=== PATIENT | male | born 1985 | race Caucasian/White ===

== ENCOUNTER 2024-04-27 16:52 | Inpatient (IN) | payer OTHER ==
[~2024-04-27] VITALS: Ht 185.4 cm; Wt 200.0 kg
[2024-04-27] MEDS: piperacillin/tazo 3.375gm/50ml 50 ML IV ONE (17:52)
[2024-04-27] MEDS ORDERED: magnesium sulf-water 4G/100mL 100 ML IV PRN (19:10)
[2024-04-27] MEDS ORDERED: morphine 2 MG/ML inj. syringe IV PRN ×2 (19:10)
[2024-04-27] MEDS ORDERED: mag hydrox/Alum hydrox/simeth 30ml oral suspension PO PRN (19:10)
[2024-04-27] MEDS ORDERED: magnesium hydroxide 30ml (MOM) UD suspension PO PRN (19:10)
[2024-04-27] MEDS ORDERED: potassium Cl 20 mEq SR tablet PO PRN ×2 (19:10)
[2024-04-27] MEDS ORDERED: acetaminophen 325mg tablet PO PRN (19:10)
[2024-04-27] MEDS ORDERED: magnesium Cl slow-release 64mg tablet PO PRN (19:10)
[2024-04-27] MEDS ORDERED: ondansetron/PF 4mg/2ml inj IV PRN (19:10)
[2024-04-27] MEDS ORDERED: potassium Cl 40MEQ/1/2NS 520ml 520 ML IV PRN (19:10)
[2024-04-27] MEDS: normal saline 1000ml 1,000 ML IV SCH (19:38)
[2024-04-27] MEDS: docusate sod 100mg capsule PO SCH (19:38)
[2024-04-27 20:13] LABS: APTT 26 SECONDS (22-32); PROTHROMBIN TIME 10.7 SECONDS (9.0-12.0)
[2024-04-27 20:19] LABS: BASOPHILS # (AUTO) 0.1 X10'3 (0-0.2); BASOPHILS % (AUTO) 0.7 % (0-1); EOSINOPHILS # (AUTO) 0.4 X10'3 (0-0.9); HEMATOCRIT 34.8 % (42.0-52.0); HEMOGLOBIN 11.1 g/dl (14.0-17.9); LYMPHOCYTES # (AUTO) 1.7 X10'3 (1.1-4.8); LYMPHOCYTES % (AUTO) 23.1 % (21-51); MEAN CORPUSCULAR HEMOGLOBIN 27.9 PG (27.0-31.0); MEAN CORPUSCULAR VOLUME 87.1 FL (78-98); MEAN PLATELET VOLUME 7.5 FL (7.4-10.4); MONOCYTES # (AUTO) 0.6 X10'3 (0-0.9); MONOCYTES % (AUTO) 8.8 % (2-12); NEUTROPHILS # (AUTO) 4.4 X10'3 (1.8-7.7); NEUTROPHILS % (AUTO) 61.4 % (42-75); PLATELET COUNT 311 X10'3 (140-440); RED CELL DISTRIBUTION WIDTH 16.3 % (11.5-14.5); WHITE BLOOD COUNT 7.2 X10'3 (4.5-11.0)
[2024-04-27 20:33] LABS: ALANINE AMINOTRANSFERASE 27 U/L (12-78); ALBUMIN/GLOBULIN RATIO 0.6 (1.1-1.5); ALKALINE PHOSPHATASE 85 IU/L (46-116); ANION GAP 7 (8-16); ASPARTATE AMINO TRANSFERASE 17 U/L (10-37); BILIRUBIN,TOTAL 0.3 MG/DL (0.1-1.0); BLOOD UREA NITROGEN 9 MG/DL (7-18); BUN/CREATININE RATIO 10.8 (10.0-20.0); C-REACTIVE PROTEIN 2.87 MG/DL (0.0-0.5); CALCIUM 8.9 MG/DL (8.5-10.1); CHLORIDE 103 MMOL/L (99-107); CREATININE 0.83 MG/DL (0.60-1.10); GLUCOSE 106 MG/DL (70-104); POTASSIUM 3.9 MMOL/L (3.5-5.1); SODIUM 138 MMOL/L (135-145); TOTAL CARBON DIOXIDE 27.9 MMOL/L (24-32); TOTAL PROTEIN 7.9 G/DL (6.4-8.2); eCRCL 139 ML/MIN; eGFR > 90 ML/MIN
[2024-04-27 21:40] VITALS: BP 138/67; PULSE 85; RESP 16; TEMP 97.5; O2SAT 98
[2024-04-27 22:15] VITALS: RESP 16; O2SAT 98
[2024-04-27] MEDS ORDERED: DOXY-460 PO (22:57)
[2024-04-27] MEDS ORDERED: MONT-40 PO (22:57)
[2024-04-27] MEDS ORDERED: CIPR500T5 PO (22:57)
[2024-04-27] MEDS ORDERED: CETI10TA14 PO (22:57)
[2024-04-28] VITALS (24 sets, daily range): BP systolic 125–166; BP diastolic 51–89; PULSE 62–87; RESP 12–20; TEMP 97.9–98.4; O2SAT 92–98
[2024-04-28] MEDS: albuterol 2.5 MG/3 ML nebule NEB PRN (00:03)
[2024-04-28] MEDS: piperacillin/tazo 3.375gm/50ml 50 ML IV SCH (00:36)
[2024-04-28 05:55] LABS: BASOPHILS % (AUTO) 0.6 % (0-1); EOSINOPHILS # (AUTO) 0.5 X10'3 (0-0.9); EOSINOPHILS % (AUTO) 6.7 % (0-6); HEMATOCRIT 32.4 % (42.0-52.0); HEMOGLOBIN 10.4 g/dl (14.0-17.9); LYMPHOCYTES # (AUTO) 1.5 X10'3 (1.1-4.8); LYMPHOCYTES % (AUTO) 21.9 % (21-51); MEAN CORPUSCULAR HEMOGLOBIN 27.8 PG (27.0-31.0); MEAN CORPUSCULAR HGB CONC 32.2 g/dL (33.0-36.5); MEAN CORPUSCULAR VOLUME 86.3 FL (78-98); MEAN PLATELET VOLUME 7.7 FL (7.4-10.4); MONOCYTES # (AUTO) 0.9 X10'3 (0-0.9); MONOCYTES % (AUTO) 12.9 % (2-12); NEUTROPHILS # (AUTO) 3.9 X10'3 (1.8-7.7); NEUTROPHILS % (AUTO) 57.9 % (42-75); PLATELET COUNT 294 X10'3 (140-440); RED BLOOD COUNT 3.75 X10'6 (4.70-6.10); RED CELL DISTRIBUTION WIDTH 16.3 % (11.5-14.5); WHITE BLOOD COUNT 6.8 X10'3 (4.5-11.0)
[2024-04-28 06:16] LABS: ALANINE AMINOTRANSFERASE 25 U/L (12-78); ALBUMIN 2.6 G/DL (3.4-5.0); ALBUMIN/GLOBULIN RATIO 0.6 (1.1-1.5); ALKALINE PHOSPHATASE 79 IU/L (46-116); ANION GAP 9 (8-16); ASPARTATE AMINO TRANSFERASE 17 U/L (10-37); BILIRUBIN,TOTAL 0.2 MG/DL (0.1-1.0); BLOOD UREA NITROGEN 10 MG/DL (7-18); BUN/CREATININE RATIO 13.5 (10.0-20.0); CALCIUM 8.5 MG/DL (8.5-10.1); CHLORIDE 104 MMOL/L (99-107); CREATININE 0.74 MG/DL (0.60-1.10); GLUCOSE 125 MG/DL (70-104); MAGNESIUM 1.8 MG/DL (1.5-2.4); SODIUM 140 MMOL/L (135-145); TOTAL CARBON DIOXIDE 26.8 MMOL/L (24-32); eCRCL 156 ML/MIN; eGFR > 90 ML/MIN
[2024-04-28] MEDS: bacitracin 15gm ointment TP ONE (09:14)
[2024-04-28] MEDS: JUVEN Shake w/Arg/Glut/Ca2+Bmb (Juven 19.3gm) pkt 240ml PO SCH (10:56)
[2024-04-28] MEDS ORDERED: proCHLORperazine 10 MG/2 ml inj IV PRN (11:15)
[2024-04-28] MEDS ORDERED: labetalol 20mg/4ml (5mg/ml) syringe IV PRN (11:15)
[2024-04-28] MEDS: ringers solution, lacted 1,000 ML IV SCH (11:15)
[2024-04-28] MEDS: acetaminophen 1,000mg/100ml IV 100 ML IV ONE (11:15)
[2024-04-28] MEDS ORDERED: morphine 4 MG/ML inj SYRINge IV PRN (11:15)
[2024-04-28] MEDS ORDERED: ondansetron/PF 4mg/2ml inj IV PRN (11:15)
[2024-04-28] MEDS ORDERED: morphine 2 MG/ML inj. syringe IV PRN (11:15)
[2024-04-28] MEDS ORDERED: meperidine/PF 25mg/ml syringe IV PRN ×3 (11:15)
[2024-04-28] MEDS ORDERED: hydrALAZINE 20mg/ml inj. IV PRN (11:15)
[2024-04-28] MEDS ORDERED: sevoflurane 250ml liquid IH ONE (12:42)
[2024-04-28] MEDS ORDERED: midazolam 1 mg/ML 2ml injection ONE (12:52)
[2024-04-28] MEDS ORDERED: fentaNYL/PF 50MCG/1 ML 2ML syringe ONE (12:59)
[2024-04-28] MEDS ORDERED: ondansetron/PF 4mg/2ml inj ONE (13:00)
[2024-04-28] MEDS ORDERED: dexamethasone sod phosphate 4mg/ml inj. ONE (13:00)
[2024-04-28] MEDS ORDERED: LIDOcaine 2% (20mg/ml) 5ml vial ONE (13:01)
[2024-04-28] MEDS ORDERED: propofol inj 20 ML IV ONE (13:01)
[2024-04-28] MEDS: ascorbic acid 500mg tablet PO SCH (17:30)
[2024-04-28] MEDS: cetirizine 10mg tablet PO SCH (20:12)
[2024-04-28] MEDS: montelukast 10mg tablet PO SCH (20:12)
[2024-04-29 02:00] VITALS: BP 136/68; PULSE 74; RESP 18; TEMP 98; O2SAT 95
[2024-04-29 06:00] VITALS: BP 130/75; PULSE 70; RESP 19; TEMP 98.1; O2SAT 95
[2024-04-29 07:15] LABS: BASOPHILS % (AUTO) 0.3 % (0-1); EOSINOPHILS % (AUTO) 0.1 % (0-6); HEMATOCRIT 34.2 % (42.0-52.0); HEMOGLOBIN 10.9 g/dl (14.0-17.9); LYMPHOCYTES # (AUTO) 1.3 X10'3 (1.1-4.8); LYMPHOCYTES % (AUTO) 15.8 % (21-51); MEAN CORPUSCULAR HEMOGLOBIN 27.3 PG (27.0-31.0); MEAN CORPUSCULAR HGB CONC 31.7 g/dL (33.0-36.5); MEAN CORPUSCULAR VOLUME 86.1 FL (78-98); MEAN PLATELET VOLUME 7.7 FL (7.4-10.4); MONOCYTES # (AUTO) 0.5 X10'3 (0-0.9); MONOCYTES % (AUTO) 6.9 % (2-12); NEUTROPHILS # (AUTO) 6.1 X10'3 (1.8-7.7); NEUTROPHILS % (AUTO) 76.9 % (42-75); PLATELET COUNT 322 X10'3 (140-440); RED BLOOD COUNT 3.97 X10'6 (4.70-6.10)
[2024-04-29 07:36] LABS: ALANINE AMINOTRANSFERASE 23 U/L (12-78); ALBUMIN 2.7 G/DL (3.4-5.0); ALBUMIN/GLOBULIN RATIO 0.5 (1.1-1.5); ALKALINE PHOSPHATASE 75 IU/L (46-116); ANION GAP 9 (8-16); ASPARTATE AMINO TRANSFERASE 19 U/L (10-37); BILIRUBIN,TOTAL 0.2 MG/DL (0.1-1.0); BLOOD UREA NITROGEN 11 MG/DL (7-18); BUN/CREATININE RATIO 13.9 (10.0-20.0); CHLORIDE 105 MMOL/L (99-107); CREATININE 0.79 MG/DL (0.60-1.10); GLUCOSE 147 MG/DL (70-104); MAGNESIUM 2.1 MG/DL (1.5-2.4); POTASSIUM 4.4 MMOL/L (3.5-5.1); SODIUM 139 MMOL/L (135-145); TOTAL CARBON DIOXIDE 25.5 MMOL/L (24-32); TOTAL PROTEIN 7.7 G/DL (6.4-8.2); eCRCL 146 ML/MIN; eGFR > 90 ML/MIN
[2024-04-29 07:55] VITALS: PULSE 65; RESP 14; O2SAT 97
[2024-04-29 08:00] VITALS: RESP 16; O2SAT 95
[2024-04-29] MEDS: MULTIVIT-MIN/FERROUS GLUCONATE 9 MG/15 ML LIQUID PO SCH (09:10)
[2024-04-29 10:00] VITALS: BP 135/75; PULSE 70; RESP 19; TEMP 98.1; O2SAT 95
[2024-04-29 14:35] VITALS: PULSE 84; RESP 16; O2SAT 98
== END 2024-04-29 15:05 | disposition home or self-care (01) | DRG 857 ==
LOC: ER 16:53 → ED HOLD 19:14 → ORTHO 4S 21:35
PROVIDERS: ADMIT Internal Medicine Critical Care Medicine; ATTEND Family Medicine
PROC: 0JB80ZZ Excision of Abdomen Subcutaneous Tissue and Fascia, Open Approach (ICD-10-PCS; principal; 2024-04-28 12:42)
DX: T81.49XA Infection following a procedure, other surgical site, initial encounter (principal); L03.311 Cellulitis of abdominal wall; Z68.43 Body mass index [BMI] 50.0-59.9, adult; J45.909 Unspecified asthma, uncomplicated; E66.01 Morbid (severe) obesity due to excess calories; G47.30 Sleep apnea, unspecified; X58.XXXA Exposure to other specified factors, initial encounter; Y93.89 Activity, other specified; Y92.89 Other specified places as the place of occurrence of the external cause; Y99.8 Other external cause status
CPT/HCPCS: 36415; 71045; 80053; 82948; 83605; 83735; 84145; 85025; 85610; 85651; 85730; 86140; 87081; 93005; 94640; 94760; 96365; 99285; A4615; A4618; A6253; A6258; A6449; A7000; G0378; J0131; J1100; J2250; J2405; J2543; J2704; J3010; J3490; J7030; J7120